=== PATIENT | male | born 2000 | race Hispanic/Latino ===

== ENCOUNTER 2023-05-18 10:20 | Emergency (ER) | payer OTHER ==
[~2023-05-18] VITALS: Ht 172.7 cm; Wt 109.5 kg
[2023-05-18 10:22] VITALS: TEMP 98.1
[2023-05-18 14:53] LABS: GC DNA AMPLIFICATION NEGATIVE (NEGATIVE)
[2023-05-18] MEDS ORDERED: IBUP-1022 PO (14:59)
[2023-05-18] MEDS ORDERED: COLA100C5 PO (14:59)
[2023-05-18 15:05] VITALS: BP 132/80; O2SAT 100
== END 2023-05-18 15:11 | disposition home or self-care (01) ==
LOC: M ED 10:20
DX: N50.819 Testicular pain, unspecified (principal); K59.00 Constipation, unspecified